=== PATIENT | female | born 1950 | race Caucasian/White ===

== ENCOUNTER → 2016-09-01 | Outpatient (CLI) | payer OTHER ==
[~2016-09-01] VITALS: Ht 170.2 cm; Wt 74.8 kg
[~2016-09-01] MED LIST: ALDACTONE25 MG PO; CONSTULOSE10 GM/15 M PO; ESCITALOPRAM OX10 MG PO; HYDROCODONE-AP1 EAC6 PO; HYDROCODONE-APA1 TA1 PO; JANTOVEN1 MG; LASIX 20 MG TAB20 MG PO; MULTIVITAMINS1 EAC7 PO; PAXIL10 MG; PROTONIX40 M1 PO; SPIRONOLACTONE50 MG PO; TYLENOL325 MG PO; VITAMIN E100 UNI1 PO; VITAMIN E400 UNIT PO; XARELTO10 MG PO; XIFAXAN550 MG PO
--- NOTE | ~2016-09-01 | S ---
[facility] [address] [place] [address] SURGICAL PATH RPT PROCEDURE Name: AZUCENA JUNG Room #: ANSLEY Maki#: [id number] Admission: 09/01/16 Date of : 50 Discharge: Report #: [id number] Path Case #: [id number] PATHOLOGY REPORT DRAFT COLLECTION DATE: 09/01/2016 RECEIVED DATE: 09/01/2016 SPECIMEN(S) RECEIVED: A.Gastritis, cirrhosis bx antrum
--- NOTE | ~2016-09-01 | P ---
[facility] [place] [address] PROCEDURE REPORT Name: AZUCENA JUNG Room #: REG [facility]#: [id number] Admission: 09/01/16 Attend Phys: Kamar Christopher MD Discharge: Date of : 50 Report #: [id number] THIS REPORT FOR: //name// CC: Mamadou Christopher BRIEF HISTORY: The patient is a 66-year-old woman with a history of cirrhosis of the liver. She also has a history of GI bleeding related to ulcers from nonsteroidals. She presents today for upper endoscopy for surveillance for esophageal varices and further evaluation of her anemia. PREOPERATIVE DIAGNOSES: Cirrhosis of the liver and portal hypertension. POSTOPERATIVE DIAGNOSES: 1. Moderately severe gastritis, likely portal hypertensive gastropathy. 2. Small hiatus hernia. 3. Normal esophagus without evidence of varices. MEDICATIONS: Deep sedation with propofol per anesthesia. SPECIMEN: Biopsies of antrum and body to evaluate for H. pylori and gastritis. ESTIMATED BLOOD LOSS: 3 mL. PROCEDURE: EGD with biopsy. FINDINGS: Prior to propofol sedation, procedure of upper endoscopy was discussed with the patient as well as potential risks, benefits, and complications. She indicates she understands and desires to proceed. With the patient in left lateral decubitus position, the Fuji video endoscope was inserted in the cervical esophagus under direct vision without difficulty. Examination of this organ through its entire length revealed normal esophageal mucosa down to the squamocolumnar junction. Multiple insertions and withdrawals of the scope did not reveal any evidence of esophageal varices. There was no bleeding within the esophagus. The squamocolumnar junction was normal. There was no evidence of esophagitis, strictures, or mass lesions. Intermittently, a small hiatus hernia was identified. The scope was advanced in the stomach, was examined on end view as well as retroflexed views. She was noted to have mucosal edema, mucosal friability, and marked erythema. There were punctate reddish spots in the antrum. These may be related to the gastritis, I cannot fully exclude vascular ectasias of the antrum of stomach. There was certainly mucosal friability, but active bleeding or blood was not seen in the stomach. We insufflated the stomach as well as possible. There was good , I did not see obvious gastric varices. Upon retroflexion, no mass lesions were seen. The pylorus, duodenal bulb, and postbulbar sweep were all inspected and noted to be [facility] [address] [place] [address] PROCEDURE REPORT Name: AZUCENA JUNG Room #: REG [facility] Maki#: [id number] Admission: 09/01/16 Attend Phys: Kamar Christopher MD Discharge: Date of : 50 Report #: [id number] unremarkable. There was no evidence of bleeding. At that point, the scope was slowly withdrawn and careful circumferential views confirmed the above finding. Biopsies were obtained of a gastric mucosa. Scope was withdrawn. The patient tolerated the procedure well. CONDITION OF THE PATIENT UPON DISCHARGE: Following procedure, the patient drowsy, aroused, conversant and will be discharged home when fully ambulatory. INSTRUCTIONS TO THE PATIENT AND FAMILY AT THE TIME OF DISCHARGE: Esophageal varices were not seen. She clearly has a gastropathy. She may have vascular ectasias, which was difficult to determine today. We will follow up on biopsies obtained today. Continue to monitor hemoglobin. She has been chronically anemic. Recent labs revealed markedly elevated ammonia of 225. She had been off her lactulose and Xifaxan. I am not sure if the labs are accurate as today she does not exhibit any evidence of significant encephalopathy. However, we will have her continue lactulose. We will have her return to see me in followup in the office in about 6-8 weeks to monitor progress. Suggest we will repeat EGD for surveillance for varices in a year or so. Again, strongly encouraged her to abstain from alcohol. We will continue to monitor hemoglobin. By: [id number] Kamar Christopher MD /timothy
== END | disposition home or self-care (01) ==
LOC: GI 06:38
DX: K74.60 Unspecified cirrhosis of liver (principal); K29.70 Gastritis, unspecified, without bleeding; K44.9 Diaphragmatic hernia without obstruction or gangrene; D64.9 Anemia, unspecified
CPT/HCPCS: 62110

== ENCOUNTER → 2017-10-05 | Outpatient (CLI) | payer OTHER ==
[~2017-10-05] VITALS: Ht 170.2 cm; Wt 74.8 kg
[~2017-10-05] MED LIST changes: +SPIRONOLACTONE100 M1 PO
--- NOTE | ~2017-10-05 | P ---
[facility] [place] [address] PROCEDURE REPORT Name: AZUCENA JUNG Room #: REG [facility]#: [id number] Admission: 10/05/17 Attend Phys: Kamar hCristopher MD Discharge: Date of : 50 Report #: [id number] THIS REPORT FOR: //name// CC: Mamadou Crowley MD FAM unknown Kamar Christopher BRIEF HISTORY: The patient is a 67-year-old woman known to me with a history of steatohepatitis and chronic liver disease. She presents today for surveillance of her esophagus to evaluate for esophageal varices. PREOPERATIVE DIAGNOSIS: Cirrhosis, rule out esophageal varices. POSTOPERATIVE DIAGNOSES: 1. Grade 1 esophageal varices, nonbleeding. 2. Small hiatus hernia. 3. Portal hypertensive gastropathy. MEDICATIONS: Deep sedation with propofol per anesthesia. SPECIMEN: None. ESTIMATED BLOOD LOSS: None. PROCEDURE: EGD. FINDINGS: Prior to propofol sedation, procedure of upper endoscopy and potential banding of esophageal varices were discussed with the patient as well as potential risks, benefits and complications. She indicates she understands and desires to proceed. DESCRIPTION OF PROCEDURE: With the patient in the left lateral decubitus position, the SocialF5i video endoscope was inserted in the cervical esophagus under direct vision without difficulty. Examination of this organ through its entire length revealed normal esophageal mucosa down to the squamocolumnar junction. The squamocolumnar junction was inspected and noted to be intact. There was no evidence of esophagitis or Mark mucosa. The distal esophagus was carefully inspected. Intermittently, very small grade 1 esophageal varices were seen. At least two columns were intermittently seen. These columns were too small to band at this point in time. There was no stigmata of bleeding or evidence of bleeding. The scope was advanced into a small hiatus hernia. The mucosa in the hernia was erythematous and there were no signs of bleeding. The scope was advanced fully into the stomach and was examined on end view as well as retroflexed views. Again there was a portal hypertensive gastropathy, which is previously described. The stomach was fully insufflated with air and there was no evidence of varices. There was good flattening of all folds. There was no [facility] [address] [place] [address] PROCEDURE REPORT Name: AZUCENA JUNG Room #: REG [facility].#: [id number] Admission: 10/05/17 Attend Phys: Kamar Christopher MD Discharge: Date of : 50 Report #: [id number] blood in the stomach. The patient has a history of ulcer disease and GI bleeding. No ulcers were seen today. The pylorus was intact and easily traversed. The duodenal bulb and postbulbar sweep down to the third portion revealed some patchy erythema in the bulb, but no ulcers, erosions or evidence of bleeding. At that point, the scope was slowly withdrawn and careful circumferential views confirmed the above findings and the patient tolerated the procedure well. CONDITION OF THE PATIENT UPON DISCHARGE: Following procedure, the patient drowsy, arousable, conversant and will be discharged to home when fully ambulatory. INSTRUCTIONS TO THE PATIENT AND FAMILY AT THE TIME OF DISCHARGE: She has very early varices. No stigmata of bleeding at this point in time. We will have her return in 1 year for surveillance exam. She has had a history of significantly elevated ammonia in the past. However, today on physical exam and questioning, she is fully oriented, awake, alert and responds promptly and correctly to questions. She has also had problems with pedal edema in the past and continues on spironolactone and Lasix. No edema on today's exam and she reports her weight has been stable. Advised the patient to return to the office to see me in about 6 months or so. By: [id number] Kamar Christopher MD /nt
== END | disposition home or self-care (01) ==
LOC: GI 09-29 09:05
DX: I85.00 Esophageal varices without bleeding (principal); K44.9 Diaphragmatic hernia without obstruction or gangrene; K76.6 Portal hypertension; K31.89 Other diseases of stomach and duodenum; K21.9 Gastro-esophageal reflux disease without esophagitis; Z96.653 Presence of artificial knee joint, bilateral; Z98.890 Other specified postprocedural states; Z88.8 Allergy status to other drugs, medicaments and biological substances; Z79.899 Other long term (current) drug therapy
CPT/HCPCS: 62110; 62900

== ENCOUNTER → 2020-01-13 | Outpatient (CLI) | payer OTHER ==
[~2020-01-13] MED LIST changes: +ASA81BEC PO; +GENGRAF100 MG PO; +LEXAPRO5 MG PO; +MYFORTIC360 MG PO; +VITAMIN D-40010 MCG PO; +VITAMIN D3250 MC1 PO
== END ==
LOC: LAB 09:51
PROVIDERS: ATTEND Specialist
DX: Z01.812 Encounter for preprocedural laboratory examination (principal); Z20.828 Contact with and (suspected) exposure to other viral communicable diseases

== ENCOUNTER → 2020-01-16 | Outpatient (CLI) | payer OTHER ==
[~2020-01-16] VITALS: Ht 170.2 cm; Wt 77.1 kg
--- NOTE | 2020-01-16 11:28 | P ---
[facility] [place] [address] PROCEDURE REPORT Name: AZUCENA JUNG Room #: REG [facility]#: [id number] Admission: 01/16/20 Attend Phys: Kamar Christopher MD Discharge: Date of : 50 Report #: [id number] THIS REPORT FOR: cc: Mamadou Crowley MD,Mamadou Christopher,Kamar Dodge MD ~ CC: Mamadou Christopher DATE OF SERVICE: 01/16/2020 OUTPATIENT COLONOSCOPY REPORT BRIEF HISTORY: This is a 69-year-old patient with history of colon polyps 5 years ago for high risk screening colonoscopy. PREOPERATIVE DIAGNOSIS: High risk screening colonoscopy. POSTOPERATIVE DIAGNOSES: 1. A 1.5 cm submucosal lesion, hepatic flexure, questionably lipoma. 2. Diverticulosis coli, greater left colon, right colon. MEDICATIONS: Deep sedation with propofol per anesthesia. SPECIMEN: Biopsies of submucosal lesion, hepatic flexure. ESTIMATED BLOOD LOSS: 3 mL. PROCEDURE: Colonoscopy to cecum and terminal ileum with biopsy. FINDINGS: Prior to propofol sedation, procedure of colonoscopy discussed with the patient as well as potential risks and its complications. She indicates she understands and desires to proceed. DESCRIPTION OF PROCEDURE: With the patient in left lateral decubitus position, digital examination was completed, which revealed no abnormalities. Subsequently, the Olympus video colonoscope was introduced into the rectum, advanced under direct vision to the cecum, done with minimal difficulty. The cecum was identified by the ileocecal valve and the appendiceal orifice. I was able to visualize the distal segment of the terminal ileum, which was inspected and noted to be unremarkable. At that point, the scope was slowly withdrawn and careful circumferential views were obtained. Upon slow withdrawal of the scope, the prep was good. The mucosa was within normal limits, normal vascular pattern, normal light reflex. As we withdrew the scope, no polyps were seen. However, at the hepatic flexure, a smooth round 1.5 cm submucosal lesion was [facility] [address] [place] [address] PROCEDURE REPORT Name: AZUCENA JUNG Room #: REG [facility].#: [id number] Admission: 01/16/20 Attend Phys: Kamar Christopher MD Discharge: Date of : 50 Report #: [id number] seen. It was modestly soft with palpation with the closed forceps. Biopsies were obtained and there may be some fatty material and this may be a small lipoma. The scope was further withdrawn and occasional diverticulum was seen in the proximal colon. There was moderately severe diverticular disease in sigmoid colon without endoscopic evidence of diverticulitis. Scope was withdrawn in the rectum. No abnormalities were seen. Upon retroflexion, no abnormalities were seen. Scope was withdrawn. The patient tolerated the procedure well. CONDITION OF THE PATIENT UPON DISCHARGE: Following procedure, the patient drowsy, arousable, conversant and will be discharged home when fully ambulatory. INSTRUCTIONS TO THE PATIENT AND FAMILY AT THE TIME OF DISCHARGE: We will follow up on the path of the small submucosal lesion. This may be a small lipoma. No polyps were seen. At this point, suggest followup colon exam for screening in 10 years. She will return to care of Dr. Mamadou Crowley and return to our office as needed. <ELECTRONICALLY SIGNED> By: Kamar Christopher MD 01/16/20 [id number] Kamar Christopher MD /nt
--- NOTE | 2020-01-17 16:06 | PATH ---
[facility] [address] [place] [address] PATHOLOGY RPT PROCEDURE Name: LORNA JUNG Room #: REG EST[facility] M.Kayleen.#: [id number] Admission: 01/16/20 Date of : 50 Discharge: Report #: [id number] Path Case #: [id number] [facility] Accession Number: [id number] . 01 Material submitted: . hepatic flexure - BX OF SUB-MUCOSAL LESION AT THE HEPATIC FLEXURE . 01 Clinical history: . SCREENING COLON CANCER . 02 Diagnosis: Large intestinal mucosa, submucosal lesion at hepatic flexure, endoscopic biopsy: - Mature adipose tissue fragment, see comment. - Overlying mucosa showing reactive changes. - Negative for dysplasia or malignancy. (IUV:pit 01/17/2020) QTP 01/17/2020 1243 Local . 02 Comment: Changes may be suggestive of a submucosal lipoma. Nuclear atypia, mitotic figures, or pleomorphic cells are not identified within the fragment examined. (IUV:pit 01/17/2020) . 02 Electronically signed: . Carmencita Godfrey MD, Pathologist NPI- [id number] . 01 Gross description: . The specimen is received in formalin, labeled "Lorna Jung, biopsy of submucosal lesion at hepatic flexure". Received are two segments of pale michelle soft tissue measuring 0.3 cm each in maximum dimensions. The specimen is submitted entirely in cassette A1. (CAA; 01/16/2020) QAC/QA 01/16/2020 1711 Local . 02 Pathologist provided ICD-10: Z12.11 . 02 CPT . 993848 Specimen Comment: A courtesy copy of this report has been sent to [phone], [phone] Specimen Comment: [id number] Specimen Comment: Report sent to / DR BEGUM Performed at: [address] [address] PATHOLOGY RPT PROCEDURE Name: LORNA JUNG Room #: REG CLI Damari.#: [id number] Admission: 01/16/20 Date of : 50 Discharge: Report #: [id number] Path Case #: [id number] [place] [id number] [address] [id number] MD Eduardo Wu MD Phone: [phone] Performed at: [address] [id number] MD Carmencita Godfrey MD Phone: [phone]
== END | disposition home or self-care (01) ==
LOC: GI 01-02 09:33
PROVIDERS: ATTEND Specialist
DX: Z12.11 Encounter for screening for malignant neoplasm of colon (principal); Z86.010 Personal history of colon polyps; K63.89 Other specified diseases of intestine; K57.30 Diverticulosis of large intestine without perforation or abscess without bleeding; D64.89 Other specified anemias; K21.9 Gastro-esophageal reflux disease without esophagitis; Z98.890 Other specified postprocedural states; Z79.899 Other long term (current) drug therapy; Z85.05 Personal history of malignant neoplasm of liver; Z96.653 Presence of artificial knee joint, bilateral; Z94.4 Liver transplant status; Z98.41 Cataract extraction status, right eye; Z98.42 Cataract extraction status, left eye; Z79.82 Long term (current) use of aspirin; Z88.8 Allergy status to other drugs, medicaments and biological substances
CPT/HCPCS: 62110; 62900

== ENCOUNTER → 2020-02-17 | Outpatient (CLI) | payer OTHER | LOC: SJCVCIMAG 09:12 | PROVIDERS: ATTEND Internal Medicine Cardiovascular Disease | DX: I25.10 Atherosclerotic heart disease of native coronary artery without angina pectoris (principal); E78.5 Hyperlipidemia, unspecified ==